=== PATIENT | female | born 1960 ===

== ENCOUNTER 2017-04-04 10:24 | Emergency (ER) | payer MEDICARE, OTHER ==
[2017-04-04 10:24] VITALS: BMI 31.1
[2017-04-04 10:43] VITALS: BP 162/64; PULSE 65; RESP 20; TEMP 97.9; O2SAT 95
--- NOTE | 2017-04-04 12:38 | ED PDOC ---
HPI: CCC, URI, Sore Throat Time Seen by Provider: 04/04/17 11:43 Chief Complaint (Nursing): Cough, Cold, Congestion Chief Complaint (Provider): cough History Per: Patient History/Exam Limitations: no limitations Associated Symptoms: Cough. denies: Fever, Chills, Sore Throat, Sputum, Neck Pain, Sinus Drainage, Myalgias, Nasal Congestion, Nausea, Vomiting, Diarrhea Additional Complaint(s): 57yo F in ED for eval of cough x 4 weeks nonproductive worse at night no fever no chill or bdy aches. pt has been seen by data warehousing engineer. and primary-who has given PT IM abx inj and steroids with various cough medication. PT states she has no relief. Past Medical History Reviewed: Historical Data, Nursing Documentation, Vital Signs Vital Signs: Last Vital Signs Temp 97.9 F 04/04/17 10:43 Pulse 65 04/04/17 10:43 Resp 20 04/04/17 10:43 BP 162/64 H 04/04/17 10:43 Pulse Ox 95 04/04/17 10:43 - Medical History PMH: Anxiety, Arthritis, Depression, Fractures (Ribs 1995), Gastritis, HTN, Hypercholesterolemia, Hypothyroidism, Seizures (Had them during sleep, md told patient this) Denies: Chronic Kidney Disease - Surgical History Surgical History: Appendectomy, Endoscopy (2009), Tonsillectomy - Family History Family History: States: No Known Family Hx - Immunization History Hx Tetanus Toxoid Vaccination: No Hx Influenza Vaccination: No Hx Pneumococcal Vaccination: No - Home Medications Home Medications: Ambulatory Orders Medication Instructions Recorded Simvastatin 10 mg PO HS 11/06/13 Esomeprazole Magnesium [Nexium] 40 mg PO DAILY 10/05/16 levETIRAcetam [Keppra] 1,000 mg PO BID 10/05/16 Alendronate Sodium [Binosto] 70 mg PO QWK 10/12/16 Bisoprolol/HCTZ [Ziac 5-6.25 mg] 1 tab PO DAILY 10/12/16 Clobazam [Onfi] 15 mg PO HS 10/12/16 Gabapentin [Neurontin] 300 mg PO BID 10/12/16 Levothyroxine [Synthroid] 125 mg PO DAILY 10/12/16 Azithromycin [Zithromax] 250 mg PO DAILY #6 tab 04/04/17 Chlorpheniramine/Dextromethorp 1 tab PO BID #14 tab 04/04/17 [Coricidin Hbp Cough & Cold 4 mg-30 mg] Guaifenesin [Mucinex] 600 mg PO BID #14 tab.er.12h 04/04/17 - Allergies Allergies/Adverse Reactions: Allergies Allergy/AdvReac Type Severity Reaction Status Date / Time aspirin Allergy ANAPHYLAXIS Verified 10/12/16 08:16 diphtheria toxoid,adsorbed Allergy SWELLING Verified 10/12/16 08:16 fentanyl Allergy RASH Verified 10/12/16 08:16 iodine Allergy URTICARIA Verified 10/12/16 08:16 midazolam Allergy RASH Verified 10/12/16 08:16 propofol Allergy RASH Verified 10/12/16 08:16 shellfish derived Allergy URTICARIA Verified 10/12/16 08:16 tetanus toxoid, adsorbed Allergy SWELLING Verified 10/12/16 08:16 Curb-65 Severity Score - CURB-65 Severity Score Confusion: No Bun >19mg/dl (>7mmol/L): No Respiratory Rate greater than/equal to 30: No Systolic BP <90 or Diastolic BP less than/equal 60mmHg: No Age >64: No Curb-65 Score: 0 Percentage 30-day mortality: 0.6% Review of Systems ROS Statement: Except As Marked, All Systems Reviewed And Found Negative Constitutional: Negative for: Fever, Chills Respiratory: Positive for: Cough, Sputum Physical Exam - Reviewed Nursing Documentation Reviewed: Yes Vital Signs Reviewed: Yes - Physical Exam Appears: Positive for: Well, Non-toxic, No Acute Distress Head Exam: Positive for: ATRAUMATIC, NORMAL INSPECTION, NORMOCEPHALIC Skin: Positive for: Normal Color, Warm, DRY ENT: Positive for: Normal ENT Inspection Cardiovascular/Chest: Positive for: Regular Rate, Rhythm Respiratory: Positive for: CNT, Normal Breath Sounds Gastrointestinal/Abdominal: Positive for: Normal Exam, Bowel Sounds, Soft. Negative for: Tenderness Neurologic/Psych: Positive for: Alert, Oriented - ECG O2 Sat by Pulse Oximetry: 95 - Radiology X-Ray: Interpreted by Tx X-Ray Interpretation: No Acute Disease Medical Decision Making Medical Decision Making: dx: bronchitis Rx: z-pack, cough control syrup and mucinex f.u with pulmonary. Disposition - Clinical Impression Clinical Impression: Bronchitis - Patient ED Disposition Is Patient to be Admitted: No Counseled Patient/Family Regarding: Diagnosis, Need For Followup, Rx Given, Smoking Cessation - Disposition Disposition: Routine/Home Disposition Time: 12:41 Condition: STABLE Prescriptions: Azithromycin [Zithromax] 250 mg PO DAILY #6 tab Chlorpheniramine/Dextromethorp [Coricidin Hbp Cough & Cold 4 mg-30 mg] 1 tab PO BID #14 tab Guaifenesin [Mucinex] 600 mg PO BID #14 tab.er.12h Instructions: Bronchospasm (ED), Acute Bronchitis (ED)
--- NOTE | 2017-04-04 13:10 | RAD ---
HISTORY: cough COMPARISON: No prior. TECHNIQUE: Chest PA and lateral FINDINGS: LUNGS: No active pulmonary disease. PLEURA: No significant pleural effusion identified. No pneumothorax apparent. CARDIOVASCULAR: Atherosclerotic aortic calcifications. Cardiomediastinal silhouette within normal limits. OSSEOUS STRUCTURES: No significant abnormalities. VISUALIZED UPPER ABDOMEN: Normal. OTHER FINDINGS: None. IMPRESSION: No active disease.
== END 2017-04-04 13:02 | disposition home or self-care (01) ==
LOC: H.ER 10:24
DX: J40 Bronchitis, not specified as acute or chronic (principal); E03.9 Hypothyroidism, unspecified; E78.00 Pure hypercholesterolemia, unspecified; F32.9 Major depressive disorder, single episode, unspecified; F41.9 Anxiety disorder, unspecified; I10 Essential (primary) hypertension